=== PATIENT | female | born 1990 | race Asian ===

== ENCOUNTER → 2017-02-06 | Outpatient (CLI) | payer MEDICAID ==
[~2017-02-06] MED LIST: IBUP-1222 PO; NONE PER PT
[2017-02-06 14:49] LABS: PATH.CAST-FLAG NOT PRESENT; SPERM-FLAG NOT PRESENT; SRC-FLAG NOT PRESENT; XTAL-FLAG NOT PRESENT; YLC-FLAG NOT PRESENT
== END | disposition home or self-care (01) ==
LOC: STAR 13:19
PROVIDERS: ATTEND Obstetrics & Gynecology
DX: Z01.818 Encounter for other preprocedural examination (principal); Z30.2 Encounter for sterilization
CPT/HCPCS: 36415; 81001; 84703; 85025

== ENCOUNTER 2017-02-10 09:41 | Day surgery (SDC) | payer MEDICAID ==
[~2017-02-10] VITALS: Ht 175.3 cm; Wt 74.0 kg
[2017-02-10] MEDS ORDERED: BUPIVACAINE/PF-EPI 0.25% 1:200K ONE (09:53)
[2017-02-10] MEDS ORDERED: LACTATED RINGERS 1,000 ML IV SCH (09:58)
[2017-02-10 10:33] VITALS: BP 132/83
[2017-02-10] MEDS ORDERED: FENTANYL PF 100 MCG/2ML ONE ×2 (10:33→13:00)
[2017-02-10] MEDS ORDERED: MIDAZOLAM 1 MG/ML, 2ML ONE (10:33)
[2017-02-10 10:43] LABS: HCG UR OBC PASS
[2017-02-10] MEDS ORDERED: PROMETHAZINE 25 MG/ML, 1ML IV PRN (11:30)
[2017-02-10] MEDS ORDERED: CEFAZOLIN 1,000 MG ONE (11:30)
[2017-02-10] MEDS ORDERED: ACETAMINOPHEN 325 MG TABLET PO PRN (11:30)
[2017-02-10] MEDS ORDERED: KETOROLAC 30 MG/1 ML ONE (11:30)
[2017-02-10] MEDS ORDERED: MEPERIDINE/PF 25MG/0.5ML IVPush PRN (11:30)
[2017-02-10] MEDS ORDERED: OXYcodone 5 MG/5 ML ORAL.SOL UDC PO PRN (11:30)
[2017-02-10] MEDS ORDERED: HYDROmorphone 1 MG/ML, 1ML IV PRN (11:30)
[2017-02-10] MEDS ORDERED: ROCURONIUM 10 MG/ML ONE (11:30)
[2017-02-10] MEDS ORDERED: ONDANSETRON 2MG/ML, 2ML IVPush PRN (11:30)
[2017-02-10] MEDS ORDERED: METOCLOPRAMIDE 5 MG/ML, 2ML IV PRN (11:30)
[2017-02-10] MEDS ORDERED: GLYCOPYRROLATE 0.2MG/1ML ONE (11:30)
[2017-02-10] MEDS ORDERED: ONDANSETRON 2MG/ML, 2ML ONE (11:30)
[2017-02-10] MEDS ORDERED: PROPOFOL 10 MG/ML, 20ML ONE (11:30)
[2017-02-10] MEDS ORDERED: DEXAMETHASONE 4 MG/ML, 5ML ONE (11:30)
[2017-02-10] MEDS ORDERED: NEOSTIGMINE 1 MG/ML, 10ML ONE (11:30)
[2017-02-10] MEDS ORDERED: BUPIVACAINE/PF-EPI 0.25% 1:200K INFIL ONE (12:10)
[2017-02-10] MEDS ORDERED: ACETAMINOPHEN 325 MG TABLET ONE (13:00)
[2017-02-10] MEDS ORDERED: OXYcodone 5 MG/5 ML ORAL.SOL UDC ONE (13:00)
[2017-02-10] MEDS: FENTANYL PF 100 MCG/2ML IV PRN ×2 (13:05→13:15)
== END 2017-02-10 15:10 | disposition home or self-care (01) ==
LOC: OUT 09:41
PROVIDERS: ATTEND Obstetrics & Gynecology
DX: Z30.2 Encounter for sterilization (principal)
CPT/HCPCS: 58661; 81025; 88302; J0690; J1100; J1885; J2250; J2405; J2704; J2710; J3010; J7120; J3490